=== PATIENT | female | born 1930 | race Caucasian/White ===

== ENCOUNTER 2016-08-03 13:53 | Inpatient (IN) | payer MEDICARE, OTHER ==
[~2016-08-03] VITALS: Ht 172.7 cm; Wt 85.0 kg
[~2016-08-03 13:53] MED LIST: KCL; LAS20; SYN15
[2016-08-03] MEDS ORDERED: SOD CHLORIDE 0.9% 500 ML IV STA (15:37)
[2016-08-03] MEDS ORDERED: morphine 4 MG/ML VIAL IV STA (15:37)
[2016-08-03] MEDS ORDERED: ONDANSETRON 4 MG INJ IV STA (15:37)
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
[2016-08-03 15:58] LABS: ADD SCAN DIFF NO
[2016-08-03 16:00] LABS: BASOPHILS % 0.4 % (0.0-2.0); EOSINOPHILS # 0.1 10^3/ul (0.0-0.5); EOSINOPHILS % 1.4 % (0.0-7.0); HEMATOCRIT 41.5 % (37.0-47.0); HEMOGLOBIN 13.7 g/dl (12.0-16.0); LYMPHOCYTES # 2.7 10^3/ul (0.8-2.9); LYMPHOCYTES % 28.2 % (15.0-51.0); MEAN CORPUSCULAR HEMOGLOBIN 30.1 pg (29.0-33.0); MEAN CORPUSCULAR VOLUME 91.2 fl (82.0-101.0); MEAN PLATELET VOLUME 9.8 fl (7.4-10.4); MONOCYTE # 0.8 10^3/ul (0.3-0.9); MONOCYTES % 8.5 % (0.0-11.0); NEUTROPHIL # 5.7 10^3/ul (1.6-7.5); NEUTROPHILS % 61.1 % (39.0-77.0); PLATELET COUNT 259 10^3/UL (140-415); RED BLOOD COUNT 4.55 10^6/ul (4.20-5.40); RED CELL DISTRIBUTION WIDTH 15.2 % (11.5-14.5); WHITE BLOOD COUNT 9.4 10^3/ul (4.8-10.8)
[2016-08-03 16:10] LABS: INR 2.32; PROTIME 25.7 Sec (12.2-14.2)
[2016-08-03 16:11] LABS: PARTIAL THROMBOPLASTIN TIME 47.4 Sec (25.0-35.0)
[2016-08-03] MEDS ORDERED: DIGO125T19 PO (16:16)
[2016-08-03] MEDS ORDERED: CLON0.2T5 PO (16:17)
[2016-08-03] MEDS ORDERED: SYN15 PO (16:17)
[2016-08-03] MEDS ORDERED: FURO40TA4 PO (16:18)
[2016-08-03] MEDS ORDERED: POTA20TA15 PO (16:18)
[2016-08-03] MEDS ORDERED: TRAM-40 PO (16:19)
[2016-08-03] MEDS ORDERED: GLIP2.5T14 PO (16:20)
[2016-08-03] MEDS ORDERED: METF-382 PO (16:21)
[2016-08-03] MEDS ORDERED: PREG150C PO (16:22)
[2016-08-03] MEDS ORDERED: HYDR-906 PO (16:22)
[2016-08-03] MEDS ORDERED: AMLO5TAB4 PO (16:23)
[2016-08-03] MEDS ORDERED: RIVA20TA PO (16:23)
[2016-08-03] MEDS ORDERED: CYAN500T46 PO (16:24)
[2016-08-03 16:35] LABS: ALBUMIN 4.1 g/dl (3.3-4.9); CHLORIDE 96 mmol/L (97-110)
[2016-08-03 16:36] LABS: POTASSIUM 4.3 mmol/L (3.5-5.1); SODIUM 138 mmol/L (135-144)
[2016-08-03 16:38] LABS: ALANINE AMINOTRANSFERASE 26 IU/L (13-69); ALKALINE PHOSPHATASE 64 IU/L (42-121); ANION GAP 16 (8-16); ASPARTATE AMINO TRANSFERASE 35 IU/L (15-46); BILIRUBIN,INDIRECT 0.5 mg/dl (0-1.1); BILIRUBIN,TOTAL 0.5 mg/dl (0.2-1.3); BLOOD UREA NITROGEN 14 mg/dl (7-20); CARBON DIOXIDE 30 mmol/L (21-31); CREATININE 0.53 mg/dl (0.44-1.00); GLUCOSE 139 mg/dl (70-220); TOTAL PROTEIN 8.2 g/dl (6.1-8.1)
[2016-08-03 16:56] LABS: TROPONIN-I < 0.012 ng/ml (0.00-0.12)
--- NOTE | 2016-08-03 17:17 | RADRPT ---
PROCEDURE: XR Chest. CLINICAL INDICATION: Abdominal pain. TECHNIQUE: Single frontal view of the chest was obtained COMPARISON: No. FINDINGS: The soft tissues are normal. The bony elements are normal. The left ventricle is mildly enlarged. The cardiomediastinal silhouette and hilar structures are normal. The pulmonary vasculature is norm al. There are vascular calcifications aortic arch. No acute infiltrate is identified. The costophre rosalino angles are normal. IMPRESSION: 1. Atherosclerosis of the aortic arch. 2. Mild left ventricular enlargement. 3. No evidence of active cardiopulmonary disease. RPTAT:AAJJ Physician Deni Date Time Electronically viewed and signed by Ian Connors Physician on 08/03/2016 17:17 /
[2016-08-03 18:00] VITALS: TEMP 98.2
[2016-08-03] MEDS ORDERED: ONDANSETRON 4 MG TAB PO PRN (18:00)
[2016-08-03] MEDS ORDERED: MAGNESIUM HYDROXIDE 30ML CUP PO PRN (18:00)
[2016-08-03] MEDS ORDERED: NACL 0.9% 3 ML SYG IV SCH (18:00)
[2016-08-03] MEDS ORDERED: ACETAMINOPHEN 325 MG TAB PO PRN (18:00)
[2016-08-03] MEDS ORDERED: ONDANSETRON 4 MG INJ IV PRN (18:00)
[2016-08-03] MEDS ORDERED: DOCUSATE SODIUM 100 MG CAP PO PRN (18:00)
[2016-08-03 18:25] VITALS: BP 136/72; PULSE 93; RESP 26
[2016-08-03 18:26] LABS: ADD UMIC YES; URINE BILIRUBIN (Dip) NEGATIVE (NEGATIVE); URINE BLOOD (Dip) NEGATIVE (NEGATIVE); URINE COLOR LT. YELLOW (YELLOW); URINE GLUCOSE (Dip) NEGATIVE (NEGATIVE); URINE KETONES (Dip) NEGATIVE (NEGATIVE); URINE LEUKOCYTE ESTERASE (Dip) TRACE (NEGATIVE); URINE NITRITE (Dip) NEGATIVE (NEGATIVE); URINE TOTAL PROTEIN (Dip) NEGATIVE (NEGATIVE); URINE UROBILINOGEN (Dip) 0.2 E.U./dL (0.1-1.0)
[2016-08-03 18:44] LABS: BACTERIA,URINE MODERATE; SQUAMOUS EPITHELIAL CELL,UR MANY; URINE RBCS NONE SEEN /HPF (0)
[2016-08-03] MEDS: metFORMIN 500 MG TAB PO SCH (19:00)
[2016-08-03] MEDS: morphine 4 MG/ML VIAL IV PRN (19:24)
[2016-08-03] MEDS ORDERED: NEOMYC/POLYMYX/BACIT 0.9 GM OINT ONE (19:57)
[2016-08-03] MEDS: 1/2 NS + KCL 20 MEQ 1,000 ML IV SCH (20:06)
[2016-08-03] MEDS: PREGABALIN 75 MG CAP PO SCH (20:29)
[2016-08-03] MEDS: FAMOTIDINE 20 MG TAB PO SCH (20:30)
[2016-08-03] MEDS: traMADol 50 MG TAB PO PRN (21:18)
[2016-08-03 21:21] VITALS: BP 130/71; RESP 20
[2016-08-03] MEDS: morphine 10 MG INJ IM ONE ×2 (22:12→23:14)
[2016-08-03 22:58] VITALS: Ht 172.7 cm; Wt 85.0 kg
[2016-08-04] MEDS: morphine 4 MG/ML VIAL IV PRN ×2 (05:41→11:20)
[2016-08-04 05:44] LABS: ADD SCAN DIFF NO
[2016-08-04 06:00] LABS: BASOPHILS % 0.3 % (0.0-2.0); EOSINOPHILS # 0.2 10^3/ul (0.0-0.5); EOSINOPHILS % 1.7 % (0.0-7.0); HEMOGLOBIN 12.4 g/dl (12.0-16.0); LYMPHOCYTES # 2.6 10^3/ul (0.8-2.9); LYMPHOCYTES % 28.7 % (15.0-51.0); MEAN CORPUSCULAR HEMOGLOBIN 29.9 pg (29.0-33.0); MEAN CORPUSCULAR HGB CONC 31.8 g/dl (32.0-37.0); MONOCYTE # 0.7 10^3/ul (0.3-0.9); MONOCYTES % 8.2 % (0.0-11.0); NEUTROPHIL # 5.5 10^3/ul (1.6-7.5); NEUTROPHILS % 60.7 % (39.0-77.0); PLATELET COUNT 255 10^3/UL (140-415); RED BLOOD COUNT 4.15 10^6/ul (4.20-5.40); RED CELL DISTRIBUTION WIDTH 15.8 % (11.5-14.5)
[2016-08-04 06:08] LABS: ALBUMIN 3.8 g/dl (3.3-4.9); POTASSIUM 4.4 mmol/L (3.5-5.1)
[2016-08-04] MEDS: 1/2 NS + KCL 20 MEQ 1,000 ML IV SCH ×2 (06:09→16:08)
[2016-08-04 06:10] LABS: BILIRUBIN,INDIRECT 0.5 mg/dl (0-1.1); BILIRUBIN,TOTAL 0.5 mg/dl (0.2-1.3); CREATININE 0.6 mg/dl (0.44-1.00)
[2016-08-04 06:11] LABS: ALBUMIN/GLOBULIN RATIO 1.05; CALCIUM 8.3 mg/dl (8.4-10.2); TOTAL PROTEIN 7.4 g/dl (6.1-8.1)
[2016-08-04] MEDS: LEVOTHYROXINE 150 MCG TAB PO SCH (07:14)
[2016-08-04 08:07] VITALS: BP 125/65; RESP 18
[2016-08-04] MEDS: FUROSEMIDE 40 MG TAB PO SCH (08:31)
[2016-08-04] MEDS: glipiZIDE (XL) 2.5 MG TAB PO SCH (08:31)
[2016-08-04] MEDS: CYANOCOBALAMIN 500 MCG TAB PO SCH (08:31)
[2016-08-04] MEDS: FAMOTIDINE 20 MG TAB PO SCH ×2 (08:31→21:02)
[2016-08-04] MEDS: POTASSIUM CHLORIDE (SR) 20 MEQ TAB PO SCH (08:31)
[2016-08-04] MEDS: metFORMIN 500 MG TAB PO SCH ×2 (08:31→18:06)
[2016-08-04] MEDS: AMLODIPINE 5 MG TAB PO SCH (08:32)
[2016-08-04] MEDS: PREGABALIN 75 MG CAP PO SCH ×2 (08:34→21:03)
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
[2016-08-04] MEDS: CARISOPRODOL 350 MG TAB PO SCH ×3 (09:36→21:03)
[2016-08-04] MEDS ORDERED: DEXTROSE 50% 50 ML SYRINGE IV PRN ×2 (12:00)
[2016-08-04] MEDS ORDERED: GLUCOSE GEL 15 GRAM TUBE PO PRN ×2 (12:00)
[2016-08-04] MEDS ORDERED: GLUCOSE GEL 15 GRAM TUBE BUCCAL PRN (12:00)
[2016-08-04] MEDS ORDERED: GLUCAGON 1 MG INJ IM PRN (12:00)
[2016-08-04] MEDS: DIGOXIN 0.125 MG TAB PO SCH (13:48)
[2016-08-04 14:00] VITALS: BP 122/68; PULSE 78; RESP 18
[2016-08-04] MEDS: RIVAROXABAN 20 MG TABLET PO SCH (18:06)
[2016-08-04] MEDS: traMADol 50 MG TAB PO PRN (18:20)
[2016-08-04 20:03] VITALS: BP 114/55; RESP 20
[2016-08-05] MEDS: morphine 4 MG/ML VIAL IV PRN ×3 (00:56→21:53)
[2016-08-05] MEDS: traMADol 50 MG TAB PO PRN ×2 (06:25→17:47)
[2016-08-05] MEDS: LEVOTHYROXINE 150 MCG TAB PO SCH (06:26)
[2016-08-05 06:38] LABS: ADD SCAN DIFF NO
[2016-08-05 06:53] LABS: BASOPHILS % 0.2 % (0.0-2.0); EOSINOPHILS # 0.1 10^3/ul (0.0-0.5); EOSINOPHILS % 0.6 % (0.0-7.0); HEMATOCRIT 37.9 % (37.0-47.0); HEMOGLOBIN 12.3 g/dl (12.0-16.0); LYMPHOCYTES # 2.4 10^3/ul (0.8-2.9); LYMPHOCYTES % 21.9 % (15.0-51.0); MEAN CORPUSCULAR HGB CONC 32.5 g/dl (32.0-37.0); MEAN CORPUSCULAR VOLUME 92.4 fl (82.0-101.0); MEAN PLATELET VOLUME 10.2 fl (7.4-10.4); MONOCYTE # 0.9 10^3/ul (0.3-0.9); MONOCYTES % 8.6 % (0.0-11.0); NEUTROPHIL # 7.4 10^3/ul (1.6-7.5); NEUTROPHILS % 68.3 % (39.0-77.0); PLATELET COUNT 223 10^3/UL (140-415); RED CELL DISTRIBUTION WIDTH 15.6 % (11.5-14.5); WHITE BLOOD COUNT 10.8 10^3/ul (4.8-10.8)
[2016-08-05 07:00] VITALS: BP 137/80; RESP 18
[2016-08-05] MEDS: 1/2 NS + KCL 20 MEQ 1,000 ML IV SCH ×2 (07:22→19:52)
[2016-08-05 07:26] LABS: ALBUMIN 3.5 g/dl (3.3-4.9)
[2016-08-05 07:27] LABS: POTASSIUM 3.7 mmol/L (3.5-5.1)
[2016-08-05 07:29] LABS: BILIRUBIN,INDIRECT 0.6 mg/dl (0-1.1); BILIRUBIN,TOTAL 0.6 mg/dl (0.2-1.3); CREATININE 0.53 mg/dl (0.44-1.00)
[2016-08-05 07:30] LABS: CALCIUM 8.2 mg/dl (8.4-10.2)
[2016-08-05] MEDS: CYANOCOBALAMIN 500 MCG TAB PO SCH (08:49)
[2016-08-05] MEDS: FUROSEMIDE 40 MG TAB PO SCH (08:49)
[2016-08-05] MEDS: POTASSIUM CHLORIDE (SR) 20 MEQ TAB PO SCH (08:49)
[2016-08-05] MEDS: FAMOTIDINE 20 MG TAB PO SCH ×2 (08:49→21:15)
[2016-08-05] MEDS: glipiZIDE (XL) 2.5 MG TAB PO SCH (08:50)
[2016-08-05] MEDS: metFORMIN 500 MG TAB PO SCH ×2 (08:50→17:59)
[2016-08-05] MEDS: AMLODIPINE 5 MG TAB PO SCH (08:51)
[2016-08-05] MEDS: PREGABALIN 75 MG CAP PO SCH ×2 (08:52→21:14)
[2016-08-05] MEDS: CARISOPRODOL 350 MG TAB PO SCH ×3 (08:52→21:14)
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
[2016-08-05] MEDS: LEVOFLOXACIN 500 MG TAB PO SCH (11:39)
[2016-08-05 12:00] VITALS: BP 122/70; PULSE 72; RESP 18
[2016-08-05] MEDS: DIGOXIN 0.125 MG TAB PO SCH (13:04)
[2016-08-05] MEDS: RIVAROXABAN 20 MG TABLET PO SCH (17:59)
[2016-08-05 19:00] VITALS: BP 132/76; RESP 18
[2016-08-06] MEDS: morphine 4 MG/ML VIAL IV PRN ×5 (03:21→20:13)
[2016-08-06] MEDS: BISACODYL (EC) 5 MG TAB PO PRN ×2 (03:26→20:42)
[2016-08-06] MEDS: LEVOFLOXACIN 500 MG TAB PO SCH (06:25)
[2016-08-06 07:40] VITALS: BP 188/88; RESP 16
[2016-08-06] MEDS: 1/2 NS + KCL 20 MEQ 1,000 ML IV SCH ×2 (08:22→20:52)
[2016-08-06] MEDS: LEVOTHYROXINE 150 MCG TAB PO SCH (08:24)
[2016-08-06] MEDS: metFORMIN 500 MG TAB PO SCH ×2 (08:25→20:06)
[2016-08-06] MEDS: glipiZIDE (XL) 2.5 MG TAB PO SCH ×2 (09:06→09:35)
[2016-08-06] MEDS: POTASSIUM CHLORIDE (SR) 20 MEQ TAB PO SCH (09:06)
[2016-08-06] MEDS: CYANOCOBALAMIN 500 MCG TAB PO SCH (09:06)
[2016-08-06] MEDS: FAMOTIDINE 20 MG TAB PO SCH ×2 (09:06→20:12)
[2016-08-06] MEDS: FUROSEMIDE 40 MG TAB PO SCH ×2 (09:07→09:37)
[2016-08-06] MEDS: AMLODIPINE 5 MG TAB PO SCH (09:07)
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
[2016-08-06] MEDS: CARISOPRODOL 350 MG TAB PO SCH ×3 (09:35→20:13)
[2016-08-06] MEDS: PREGABALIN 75 MG CAP PO SCH ×2 (09:36→20:13)
[2016-08-06] MEDS: DIGOXIN 0.125 MG TAB PO SCH (14:45)
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
--- NOTE | 2016-08-06 16:44 | RADRPT ---
PROCEDURE: XR right Hand. CLINICAL INDICATION: Right hand pain TECHNIQUE: Three views of the right hand were obtained. COMPARISON: No prior studies are available for comparison. FINDINGS: Overlying casting material obscures bony detail. There is a minimally-displaced fracture at the bas e of the fifth proximal phalanx. Difficult to identify any additional fractures though this assessm ent is limited. IMPRESSION: 1. Limited evaluation due to overlying casting material. Consider follow-up after removal of casti ng material. 2. Minimally-displaced fracture near the base of the fifth proximal phalanx. No additional fracture s can be confirmed. RPTAT: UU .Royal Cordoba MD, MD Date Time Electronically viewed and signed by .Royal Cordoba MD, on 08/06/2016 16:44 .K/
[2016-08-06] MEDS: RIVAROXABAN 20 MG TABLET PO SCH (20:06)
[2016-08-06 20:49] VITALS: BP 128/72; RESP 16
[2016-08-07] MEDS: morphine 4 MG/ML VIAL IV PRN ×4 (02:52→18:35)
[2016-08-07] MEDS: LEVOFLOXACIN 500 MG TAB PO SCH (06:42)
[2016-08-07] MEDS: LEVOTHYROXINE 150 MCG TAB PO SCH (06:42)
[2016-08-07 09:04] VITALS: BP 137/83; RESP 20
[2016-08-07] MEDS: 1/2 NS + KCL 20 MEQ 1,000 ML IV SCH ×2 (09:22→21:52)
[2016-08-07] MEDS: metFORMIN 500 MG TAB PO SCH ×2 (09:57→18:27)
[2016-08-07] MEDS: POTASSIUM CHLORIDE (SR) 20 MEQ TAB PO SCH (09:57)
[2016-08-07] MEDS: glipiZIDE (XL) 2.5 MG TAB PO SCH (09:58)
[2016-08-07] MEDS: CYANOCOBALAMIN 500 MCG TAB PO SCH (09:58)
[2016-08-07] MEDS: PREGABALIN 75 MG CAP PO SCH ×2 (09:58→20:31)
[2016-08-07] MEDS: FAMOTIDINE 20 MG TAB PO SCH ×2 (09:59→20:31)
[2016-08-07] MEDS: CARISOPRODOL 350 MG TAB PO SCH ×3 (09:59→20:31)
[2016-08-07] MEDS: FUROSEMIDE 40 MG TAB PO SCH (10:00)
[2016-08-07] MEDS: AMLODIPINE 5 MG TAB PO SCH (10:00)
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
[2016-08-07] MEDS: DIGOXIN 0.125 MG TAB PO SCH (13:58)
[2016-08-07] MEDS: RIVAROXABAN 20 MG TABLET PO SCH (18:27)
[2016-08-07 19:10] VITALS: BP 116/64; RESP 20
[2016-08-08] MEDS: morphine 4 MG/ML VIAL IV PRN ×2 (03:26→12:13)
[2016-08-08] MEDS: LEVOTHYROXINE 150 MCG TAB PO SCH (05:44)
[2016-08-08] MEDS: LEVOFLOXACIN 500 MG TAB PO SCH (05:44)
[2016-08-08 07:47] VITALS: BP 130/60; RESP 18
[2016-08-08] MEDS: metFORMIN 500 MG TAB PO SCH ×2 (08:31→17:30)
[2016-08-08] MEDS: glipiZIDE (XL) 2.5 MG TAB PO SCH (08:32)
[2016-08-08] MEDS: POTASSIUM CHLORIDE (SR) 20 MEQ TAB PO SCH (08:32)
[2016-08-08] MEDS: FAMOTIDINE 20 MG TAB PO SCH (08:33)
[2016-08-08] MEDS: PREGABALIN 75 MG CAP PO SCH (08:33)
[2016-08-08] MEDS: AMLODIPINE 5 MG TAB PO SCH (08:33)
[2016-08-08] MEDS: FUROSEMIDE 40 MG TAB PO SCH (08:33)
[2016-08-08] MEDS: CYANOCOBALAMIN 500 MCG TAB PO SCH (08:34)
[2016-08-08] MEDS: CARISOPRODOL 350 MG TAB PO SCH ×2 (08:34→12:37)
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
[2016-08-08] MEDS: 1/2 NS + KCL 20 MEQ 1,000 ML IV SCH (10:22)
[2016-08-08] MEDS: DIGOXIN 0.125 MG TAB PO SCH (12:37)
[2016-08-08] MEDS ORDERED: HYDROCODONE/APAP (5/325) TAB PO PRN ×2 (14:30)
[2016-08-08] MEDS: RIVAROXABAN 20 MG TABLET PO SCH (17:30)
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
== END 2016-08-08 20:00 | DRG 605 ==
LOC: E/R 13:53 → MS1 16:36
PROVIDERS: ADMIT Internal Medicine; ATTEND Internal Medicine
DX: S30.1XXA Contusion of abdominal wall, initial encounter (principal); S62.309A Unspecified fracture of unspecified metacarpal bone, initial encounter for closed fracture; E11.69 Type 2 diabetes mellitus with other specified complication; I48.0 Paroxysmal atrial fibrillation; E03.9 Hypothyroidism, unspecified; E78.5 Hyperlipidemia, unspecified; V89.2XXA Person injured in unspecified motor-vehicle accident, traffic, initial encounter; M51.86 Other intervertebral disc disorders, lumbar region
CPT/HCPCS: 36415; 71010; 80053; 81001; 81003; 82962; 83036; 83690; 84439; 84443; 84484; 85025; 85610; 85730; 87086; 93005; 96374; 96375; 97162; J2270; J2405; J3480; J7040

== ENCOUNTER 2016-08-08 17:20 | Inpatient (IN) | payer MEDICARE, OTHER ==
[~2016-08-08] VITALS: Ht 172.7 cm; Wt 85.0 kg
[~2016-08-08 17:20] MED LIST changes: +AMLO5TAB4 PO; +CLON0.2T5 PO; +CYAN500T46 PO; +DIGO125T19 PO; +FURO40TA4 PO; +GLIP2.5T14 PO; +HYDR-906 PO; -KCL; -LAS20; +METF500T4 PO; +POTA20TA15 PO; +PREG150C PO; +RIVA20TA PO; -SYN15; +SYN15 PO; +TRAM-40 PO
[2016-08-08 20:53] VITALS: BP 138/69; RESP 18
[2016-08-08 21:00] VITALS: Ht 172.7 cm; Wt 85.0 kg
[2016-08-08] MEDS ORDERED: MAGNESIUM HYDROXIDE 30ML CUP PO PRN (21:00)
[2016-08-08] MEDS ORDERED: DEXTROSE 50% 50 ML SYRINGE IV PRN ×2 (21:00)
[2016-08-08] MEDS ORDERED: GLUCOSE GEL 15 GRAM TUBE BUCCAL PRN (21:00)
[2016-08-08] MEDS ORDERED: ONDANSETRON 4 MG TAB PO PRN (21:00)
[2016-08-08] MEDS ORDERED: HYDROCODONE/APAP (5/325) TAB PO PRN (21:00)
[2016-08-08] MEDS ORDERED: GLUCAGON 1 MG INJ IM PRN (21:00)
[2016-08-08] MEDS ORDERED: GLUCOSE GEL 15 GRAM TUBE PO PRN ×2 (21:00)
[2016-08-08] MEDS ORDERED: BISACODYL (EC) 5 MG TAB PO PRN (21:30)
[2016-08-08] MEDS ORDERED: ACETAMINOPHEN 325 MG TAB PO PRN (21:30)
[2016-08-08] MEDS: PREGABALIN 75 MG CAP PO SCH (21:47)
[2016-08-08] MEDS: FAMOTIDINE 20 MG TAB PO SCH (21:47)
[2016-08-08] MEDS: CARISOPRODOL 350 MG TAB PO SCH (21:47)
[2016-08-08] MEDS: HYDROCODONE/APAP (5/325) TAB PO PRN (21:48)
[2016-08-08 22:38] LABS: ADD UMIC YES; URINE BILIRUBIN (Dip) 1+ (NEGATIVE); URINE BLOOD (Dip) NEGATIVE (NEGATIVE); URINE COLOR YELLOW (YELLOW); URINE GLUCOSE (Dip) NEGATIVE (NEGATIVE); URINE KETONES (Dip) TRACE (NEGATIVE); URINE LEUKOCYTE ESTERASE (Dip) TRACE (NEGATIVE); URINE NITRITE (Dip) NEGATIVE (NEGATIVE); URINE TOTAL PROTEIN (Dip) NEGATIVE (NEGATIVE); URINE UROBILINOGEN (Dip) 2.0 E.U./dL (0.1-1.0)
[2016-08-08 22:53] LABS: SQUAMOUS EPITHELIAL CELL,UR MODERATE; URINE RBCS 0-2 /HPF (0)
[2016-08-08 22:54] LABS: ICTOTEST NEGATIVE (NEGATIVE)
[2016-08-09] MEDS ORDERED: LACTULOSE 30ML CUP PO PRN (06:00)
[2016-08-09] MEDS ORDERED: BISACODYL 10 MG SUPP PR PRN (06:00)
[2016-08-09] MEDS: LEVOFLOXACIN 500 MG TAB PO SCH (06:08)
[2016-08-09] MEDS: LEVOTHYROXINE 150 MCG TAB PO SCH (06:08)
[2016-08-09] MEDS: ACCU-CHEK XX SCH ×3 (07:05→17:36)
[2016-08-09] MEDS: HYDROCODONE/APAP (5/325) TAB PO PRN ×2 (07:18→21:03)
[2016-08-09 07:39] LABS: ADD SCAN DIFF NO
[2016-08-09 07:44] VITALS: BP 175/94; RESP 18
[2016-08-09 07:45] LABS: BASOPHILS % 0.4 % (0.0-2.0); EOSINOPHILS # 0.1 10^3/ul (0.0-0.5); EOSINOPHILS % 1.2 % (0.0-7.0); HEMATOCRIT 41.4 % (37.0-47.0); HEMOGLOBIN 13.2 g/dl (12.0-16.0); LYMPHOCYTES # 1.9 10^3/ul (0.8-2.9); LYMPHOCYTES % 25.6 % (15.0-51.0); MEAN CORPUSCULAR HEMOGLOBIN 29.7 pg (29.0-33.0); MEAN CORPUSCULAR HGB CONC 31.9 g/dl (32.0-37.0); MEAN CORPUSCULAR VOLUME 93.2 fl (82.0-101.0); MEAN PLATELET VOLUME 9.9 fl (7.4-10.4); MONOCYTE # 0.6 10^3/ul (0.3-0.9); MONOCYTES % 7.9 % (0.0-11.0); NEUTROPHIL # 4.8 10^3/ul (1.6-7.5); NEUTROPHILS % 64.2 % (39.0-77.0); PLATELET COUNT 250 10^3/UL (140-415); RED BLOOD COUNT 4.44 10^6/ul (4.20-5.40); RED CELL DISTRIBUTION WIDTH 15.6 % (11.5-14.5); WHITE BLOOD COUNT 7.5 10^3/ul (4.8-10.8)
[2016-08-09 07:59] LABS: ALBUMIN 3.9 g/dl (3.3-4.9)
[2016-08-09 08:00] LABS: POTASSIUM 4.1 mmol/L (3.5-5.1)
[2016-08-09 08:02] LABS: BILIRUBIN,INDIRECT 0.3 mg/dl (0-1.1); BILIRUBIN,TOTAL 0.3 mg/dl (0.2-1.3); CREATININE 0.48 mg/dl (0.44-1.00)
[2016-08-09 08:03] LABS: ALBUMIN/GLOBULIN RATIO 0.97; CALCIUM 8.9 mg/dl (8.4-10.2); TOTAL PROTEIN 7.9 g/dl (6.1-8.1)
[2016-08-09] MEDS: glipiZIDE (XL) 2.5 MG TAB PO SCH (08:36)
[2016-08-09] MEDS: CARISOPRODOL 350 MG TAB PO SCH ×3 (08:37→21:02)
[2016-08-09] MEDS: PREGABALIN 75 MG CAP PO SCH ×2 (08:37→21:02)
[2016-08-09] MEDS: POTASSIUM CHLORIDE (SR) 20 MEQ TAB PO SCH (08:37)
[2016-08-09] MEDS: metFORMIN 500 MG TAB PO SCH ×2 (08:38→17:36)
[2016-08-09] MEDS: FUROSEMIDE 40 MG TAB PO SCH (08:38)
[2016-08-09] MEDS: CYANOCOBALAMIN 500 MCG TAB PO SCH (08:38)
[2016-08-09] MEDS: FAMOTIDINE 20 MG TAB PO SCH ×2 (08:38→21:02)
[2016-08-09] MEDS ORDERED: AMLODIPINE 5 MG TAB PO SCH (09:00)
[2016-08-09] MEDS: DIGOXIN 0.125 MG TAB PO SCH (12:27)
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
[2016-08-09] MEDS: RIVAROXABAN 20 MG TABLET PO SCH (17:36)
[2016-08-09 20:00] VITALS: BP 160/72; PULSE 78; RESP 18
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
[2016-08-09] MEDS ORDERED: AMLODIPINE 5 MG TAB PO ONE (20:30)
[2016-08-09] MEDS: SENNA TAB PO SCH (21:00)
[2016-08-10] MEDS: HYDROCODONE/APAP (5/325) TAB PO PRN ×4 (03:04→21:03)
[2016-08-10] MEDS: LEVOTHYROXINE 150 MCG TAB PO SCH (06:53)
[2016-08-10] MEDS: LEVOFLOXACIN 500 MG TAB PO SCH (06:53)
[2016-08-10] MEDS: ACCU-CHEK XX SCH ×3 (07:05→17:05)
[2016-08-10 07:30] VITALS: BP 185/95; RESP 18
[2016-08-10] MEDS: metFORMIN 500 MG TAB PO SCH ×2 (08:08→18:17)
[2016-08-10] MEDS: POTASSIUM CHLORIDE (SR) 20 MEQ TAB PO SCH (08:28)
[2016-08-10] MEDS: PREGABALIN 75 MG CAP PO SCH ×2 (08:28→20:40)
[2016-08-10] MEDS: FUROSEMIDE 40 MG TAB PO SCH (08:28)
[2016-08-10] MEDS: FAMOTIDINE 20 MG TAB PO SCH ×2 (08:28→20:40)
[2016-08-10] MEDS: glipiZIDE (XL) 2.5 MG TAB PO SCH (08:28)
[2016-08-10] MEDS: CARISOPRODOL 350 MG TAB PO SCH ×3 (08:29→20:40)
[2016-08-10] MEDS: CYANOCOBALAMIN 500 MCG TAB PO SCH (08:29)
[2016-08-10] MEDS: AMLODIPINE 10 MG TAB PO SCH (08:29)
[2016-08-10 10:00] VITALS: BP 135/65; PULSE 78
[2016-08-10] MEDS: DIGOXIN 0.125 MG TAB PO SCH (13:00)
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
[2016-08-10] MEDS: RIVAROXABAN 20 MG TABLET PO SCH (18:17)
[2016-08-10 20:00] VITALS: BP 195/91; RESP 20
[2016-08-10] MEDS: DOXAZOSIN 1 MG TAB PO SCH (20:40)
[2016-08-10] MEDS: SENNA TAB PO SCH (20:40)
[2016-08-10 22:15] VITALS: BP 156/80; PULSE 72
[2016-08-11] MEDS: HYDROCODONE/APAP (5/325) TAB PO PRN ×5 (03:01→23:45)
[2016-08-11] MEDS: LEVOTHYROXINE 150 MCG TAB PO SCH (06:29)
[2016-08-11] MEDS: LEVOFLOXACIN 500 MG TAB PO SCH (06:29)
[2016-08-11 07:42] VITALS: BP 152/87; RESP 18
[2016-08-11] MEDS: ACCU-CHEK XX SCH ×3 (07:53→18:04)
[2016-08-11] MEDS: CYANOCOBALAMIN 500 MCG TAB PO SCH (08:10)
[2016-08-11] MEDS: CARISOPRODOL 350 MG TAB PO SCH ×3 (08:10→20:22)
[2016-08-11] MEDS: AMLODIPINE 10 MG TAB PO SCH (08:10)
[2016-08-11] MEDS: FAMOTIDINE 20 MG TAB PO SCH ×2 (08:10→20:22)
[2016-08-11] MEDS: PREGABALIN 75 MG CAP PO SCH ×2 (08:10→20:23)
[2016-08-11] MEDS: metFORMIN 500 MG TAB PO SCH ×2 (08:10→18:00)
[2016-08-11] MEDS: POTASSIUM CHLORIDE (SR) 20 MEQ TAB PO SCH (08:11)
[2016-08-11] MEDS: FUROSEMIDE 40 MG TAB PO SCH (08:11)
[2016-08-11] MEDS: glipiZIDE (XL) 2.5 MG TAB PO SCH (08:11)
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
[2016-08-11] MEDS: DIGOXIN 0.125 MG TAB PO SCH (13:18)
[2016-08-11] MEDS: RIVAROXABAN 20 MG TABLET PO SCH (18:00)
[2016-08-11 20:00] VITALS: BP 140/85; RESP 18
[2016-08-11] MEDS: SENNA TAB PO SCH (20:22)
[2016-08-11] MEDS: DOXAZOSIN 1 MG TAB PO SCH (20:23)
[2016-08-12] MEDS: HYDROCODONE/APAP (5/325) TAB PO PRN ×4 (04:13→21:39)
[2016-08-12] MEDS: LEVOTHYROXINE 150 MCG TAB PO SCH (06:53)
[2016-08-12] MEDS: LEVOFLOXACIN 500 MG TAB PO SCH (06:53)
[2016-08-12] MEDS: ACCU-CHEK XX SCH ×3 (07:05→17:08)
[2016-08-12] MEDS: metFORMIN 500 MG TAB PO SCH ×2 (08:15→17:25)
[2016-08-12] MEDS: PREGABALIN 75 MG CAP PO SCH ×2 (09:35→20:41)
[2016-08-12] MEDS: FAMOTIDINE 20 MG TAB PO SCH ×2 (09:35→20:41)
[2016-08-12] MEDS: glipiZIDE (XL) 2.5 MG TAB PO SCH (09:35)
[2016-08-12] MEDS: FUROSEMIDE 40 MG TAB PO SCH (09:35)
[2016-08-12] MEDS: POTASSIUM CHLORIDE (SR) 20 MEQ TAB PO SCH (09:35)
[2016-08-12] MEDS: CARISOPRODOL 350 MG TAB PO SCH ×3 (09:35→20:41)
[2016-08-12] MEDS: CYANOCOBALAMIN 500 MCG TAB PO SCH (09:35)
[2016-08-12] MEDS: AMLODIPINE 10 MG TAB PO SCH (09:36)
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
[2016-08-12] MEDS: DIGOXIN 0.125 MG TAB PO SCH (12:34)
[2016-08-12] MEDS: RIVAROXABAN 20 MG TABLET PO SCH (17:25)
[2016-08-12 20:33] VITALS: BP 135/60; PULSE 74; RESP 17
[2016-08-12] MEDS: DOXAZOSIN 1 MG TAB PO SCH (20:41)
[2016-08-12] MEDS: SENNA TAB PO SCH (20:42)
[2016-08-13] MEDS: HYDROCODONE/APAP (5/325) TAB PO PRN ×3 (03:32→17:43)
[2016-08-13] MEDS: LEVOTHYROXINE 150 MCG TAB PO SCH (06:57)
[2016-08-13] MEDS: ACCU-CHEK XX SCH ×3 (07:05→17:19)
[2016-08-13 07:30] VITALS: BP 169/79; RESP 18
[2016-08-13] MEDS: glipiZIDE (XL) 2.5 MG TAB PO SCH (08:26)
[2016-08-13] MEDS: metFORMIN 500 MG TAB PO SCH ×2 (08:26→17:42)
[2016-08-13] MEDS: CARISOPRODOL 350 MG TAB PO SCH ×3 (08:26→20:22)
[2016-08-13] MEDS: FAMOTIDINE 20 MG TAB PO SCH ×2 (08:27→20:22)
[2016-08-13] MEDS: PREGABALIN 75 MG CAP PO SCH ×2 (08:27→20:22)
[2016-08-13] MEDS: AMLODIPINE 10 MG TAB PO SCH (08:27)
[2016-08-13] MEDS: CYANOCOBALAMIN 500 MCG TAB PO SCH (08:27)
[2016-08-13] MEDS: DOCUSATE SODIUM 100 MG CAP PO PRN (08:28)
[2016-08-13] MEDS: POTASSIUM CHLORIDE (SR) 20 MEQ TAB PO SCH (08:28)
[2016-08-13] MEDS: FUROSEMIDE 40 MG TAB PO SCH (08:29)
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
[2016-08-13] MEDS: DIGOXIN 0.125 MG TAB PO SCH (13:19)
[2016-08-13] MEDS: RIVAROXABAN 20 MG TABLET PO SCH (17:43)
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
[2016-08-13] MEDS: SENNA TAB PO SCH (20:23)
[2016-08-13] MEDS: DOXAZOSIN 1 MG TAB PO SCH (20:24)
[2016-08-13 20:33] VITALS: BP 143/65; RESP 16
[2016-08-14] MEDS: HYDROCODONE/APAP (5/325) TAB PO PRN ×4 (02:12→17:18)
[2016-08-14] MEDS: LEVOTHYROXINE 150 MCG TAB PO SCH (06:26)
[2016-08-14 07:30] VITALS: BP 177/107; RESP 18
[2016-08-14] MEDS: ACCU-CHEK XX SCH ×3 (07:44→17:21)
[2016-08-14] MEDS: PREGABALIN 75 MG CAP PO SCH ×2 (08:15→20:40)
[2016-08-14] MEDS: glipiZIDE (XL) 2.5 MG TAB PO SCH (08:15)
[2016-08-14] MEDS: CARISOPRODOL 350 MG TAB PO SCH ×3 (08:15→20:40)
[2016-08-14] MEDS: metFORMIN 500 MG TAB PO SCH ×2 (08:15→17:17)
[2016-08-14] MEDS: POTASSIUM CHLORIDE (SR) 20 MEQ TAB PO SCH (08:15)
[2016-08-14] MEDS: FUROSEMIDE 40 MG TAB PO SCH (08:17)
[2016-08-14] MEDS: DOCUSATE SODIUM 100 MG CAP PO PRN (08:17)
[2016-08-14] MEDS: CYANOCOBALAMIN 500 MCG TAB PO SCH (08:17)
[2016-08-14] MEDS: AMLODIPINE 10 MG TAB PO SCH (08:17)
[2016-08-14] MEDS: FAMOTIDINE 20 MG TAB PO SCH ×2 (08:17→20:39)
[2016-08-14 10:00] VITALS: BP 126/78; PULSE 92
--- NOTE | 2016-08-14 12:07 | CONS ---
Date/Time of Note Date/Time of Note DATE: 08/14/16 TIME: 12:06 Consult Date/Type/Reason Admit Date/Time Aug 08, 2016 at 18:48 Initial Consult Date Objective Vital Signs Date Time Temp Pulse Resp B/P Pulse Ox O2 Delivery O2 Flow Rate FiO2 08/14/16 10:00 92 126/78 08/14/16 07:30 97.7 18 92 08/12/16 20:33 Room Air Intake and Output 08/13/16 08/13/16 08/14/16 15:00 23:00 07:00 Intake Total 600 ml 1640 ml 440 ml Balance 600 ml 1640 ml 440 ml INTERDISCIPLINARY TEAM CONFERENCE BOWEL- Cont BLADDER-Cont SKIN- intact OT- DRESSING-min/mod BATHING-min/mod TOILETING-min/mod PT- BED MOBILITY-min TRANSFERS-min AMBULATION-min 120 feet A/P- Interdisciplinary team conference held today. Please see interdisciplinary sheet. Working toward d.cJessica on 08/22 with post discharge follow up of physical therapy, occupational therapy. Results/Medications Results 24 hrs Laboratory Tests Test 08/13/16 17:00 08/14/16 05:55 08/14/16 07:36 08/14/16 11:57 Bedside Glucose 102 132 124 Thyroid Stimulating Hormone (TSH) 2.670 Free Thyroxine 1.08 Medications Current Medications Ondansetron HCl (Zofran Tab) 4 mg Q6H PRN PO NAUSEA AND/OR VOMITING; Start 08/08 at 21:00 Potassium Chloride (Klor-Con 20) 20 meq DAILY PO Last administered on 08:15; Admin Dose 20 MEQ; Start 08/09/16 at 09:00 Pregabalin (Lyrica) 150 mg BID PO Last administered on 08/14/16 08:15; Admin Dose 150 MG; Start 08/08/16 at 21:00 Levothyroxine Sodium (Synthroid) 150 mcg DAILY@06 PO Last administered on 06:26; Admin Dose 150 MCG; Start 08/09/16 at 06:00 Magnesium Hydroxide (Milk Of Mag) 30 ml DAILY PRN PO CONSTIPATION; Start at 21:00 Miscellaneous Information 1 ea NOTE XX ; Start 08/08/16 at 21:00 Glucose (Glutose) 15 gm Q15M PRN PO DECREASED GLUCOSE; Start 08/08/16 at 21:00 Glucose (Glutose) 22.5 gm Q15M PRN PO DECREASED GLUCOSE; Start 08/08/16 at 21:00 Dextrose (D50w Syringe) 25 ml Q15M PRN IV DECREASED GLUCOSE; Start 08/08/16 at 21:00 Dextrose (D50w Syringe) 50 ml Q15M PRN IV DECREASED GLUCOSE; Start 08/08/16 at 21:00 Glucagon (Glucagen) 1 mg Q15M PRN IM DECREASED GLUCOSE; Start 08/08/16 at 21:00 Glucose (Glutose) 15 gm Q15M PRN BUCCAL DECREASED GLUCOSE; Start 08/08/16 at 21: 00 Acetaminophen/ Hydrocodone Bitart ([place] (5/325)) 1 tab Q4H PRN PO PAIN; Start 08/08/16 at 21:00 Acetaminophen/ Hydrocodone Bitart ([place] (5/325)) 2 tab Q4H PRN PO PAIN Last administered on 08/14/16 11:33; Admin Dose 2 TAB; Start 08/08/16 at 21:00 Digoxin (Digoxin) 0.125 mg DAILY@13 PO Last administered on 08/13/16 13:19; Admin Dose 0.125 MG; Start 08/09/16 at 13:00 Docusate Sodium (Colace) 100 mg Q12H PRN PO CONSTIPATION Last administered on 08:17; Admin Dose 100 MG; Start 08/08/16 at 21:30 Famotidine (Pepcid) 20 mg Q12 PO Last administered on 08/14/16 08:17; Admin Dose 20 MG; Start 08/08/16 at 21:08 Furosemide (Lasix) 40 mg DAILY PO Last administered on 08/14/16 08:17; Admin Dose 40 MG; Start 08/09/16 at 09:00 Glipizide (Glucotrol Xl) 2.5 mg DAILY PO Last administered on 08/14/16 08:15; Admin Dose 2.5 MG; Start 08/09/16 at 09:00 Acetaminophen (Tylenol Tab) 650 mg Q6H PRN PO PAIN AND OR ELEVATED TEMP; Start 08/08/16 at 21:30 Bisacodyl (Dulcolax) 5 mg DAILY PRN PO CONSTIPATION; Start 08/08/16 at 21:30 Carisoprodol (Soma) 350 mg TID PO Last administered on 08/14/16 08:15; Admin Dose 350 MG; Start 08/08/16 at 21:10 Clonidine (Catapres) 0.4 mg QAM PO Last administered on 08/14/16 08:17; Admin Dose 0.4 MG; Start 08/09/16 at 09:00 Cyanocobalamin (Vitamin B12) 500 mcg DAILY PO Last administered on 08/14/16 08 :17; Admin Dose 500 MCG; Start 08/09/16 at 09:00 Senna (Senokot) 1 tab HS PO Last administered on 08/13/16 20:23; Admin Dose 1 TAB; Start 08/09/16 at 21:00 Bisacodyl (Dulcolax Supp) 10 mg DAILY PRN [place] CONSTIPATION; Start 08/09/16 at 06: 00 Lactulose (Enulose) 20 gm DAILY PRN PO CONSTIPATION; Start 08/09/16 at 06:00 Amlodipine Besylate (Norvasc) 10 mg DAILY PO Last administered on 08/14/16 08: 17; Admin Dose 10 MG; Start 08/10/16 at 09:00 Doxazosin Mesylate (Cardura) 1 mg HS PO Last administered on 08/13/16 20:24; Admin Dose 1 MG; Start 08/10/16 at 21:00 MONA ESPINOZA MD Aug 14, 2016 12:07 MONA ESPINOZA MD Aug 14, 2016 12:07
[2016-08-14] MEDS: DIGOXIN 0.125 MG TAB PO SCH (12:27)
[2016-08-14] MEDS: RIVAROXABAN 20 MG TABLET PO SCH (17:17)
[2016-08-14] MEDS: DOXAZOSIN 1 MG TAB PO SCH (20:40)
[2016-08-14 20:58] VITALS: BP 136/63; RESP 18
[2016-08-14] MEDS: SENNA TAB PO SCH (21:00)
[2016-08-15] MEDS: HYDROCODONE/APAP (5/325) TAB PO PRN ×4 (00:21→20:21)
[2016-08-15] MEDS: LEVOTHYROXINE 150 MCG TAB PO SCH (06:24)
[2016-08-15 07:42] VITALS: BP 108/67; RESP 18
[2016-08-15] MEDS: ACCU-CHEK XX SCH ×3 (07:51→17:26)
[2016-08-15] MEDS: CARISOPRODOL 350 MG TAB PO SCH ×3 (08:08→20:19)
[2016-08-15] MEDS: POTASSIUM CHLORIDE (SR) 20 MEQ TAB PO SCH (08:08)
[2016-08-15] MEDS: glipiZIDE (XL) 2.5 MG TAB PO SCH (08:09)
[2016-08-15] MEDS: PREGABALIN 75 MG CAP PO SCH ×2 (08:09→20:19)
[2016-08-15] MEDS: CYANOCOBALAMIN 500 MCG TAB PO SCH (08:10)
[2016-08-15] MEDS: FUROSEMIDE 40 MG TAB PO SCH (08:10)
[2016-08-15] MEDS: metFORMIN 500 MG TAB PO SCH ×2 (08:10→17:28)
[2016-08-15] MEDS: FAMOTIDINE 20 MG TAB PO SCH ×2 (08:10→20:18)
[2016-08-15] MEDS: DOCUSATE SODIUM 100 MG CAP PO PRN (08:10)
[2016-08-15] MEDS: AMLODIPINE 10 MG TAB PO SCH (10:35)
--- NOTE | 2016-08-15 12:48 | CONS ---
Date/Time of Note Date/Time of Note DATE: 08/15/16 TIME: 12:48 Consult Date/Type/Reason Admit Date/Time Aug 08, 2016 at 18:48 Objective Vital Signs Date Time Temp Pulse Resp B/P Pulse Ox O2 Delivery O2 Flow Rate FiO2 08/15/16 07:42 97.9 67 18 108/67 98 08/12/16 20:33 Room Air Intake and Output 08/14/16 08/14/16 08/15/16 14:59 22:59 06:59 Intake Total 820 ml 700 ml Balance 820 ml 700 ml Results/Medications Results 24 hrs Laboratory Tests Test 08/14/16 17:16 08/15/16 07:36 08/15/16 12:02 Bedside Glucose 141 144 140 Medications Current Medications Ondansetron HCl (Zofran Tab) 4 mg Q6H PRN PO NAUSEA AND/OR VOMITING; Start 08/08 at 21:00 Potassium Chloride (Klor-Con 20) 20 meq DAILY PO Last administered on 08:08; Admin Dose 20 MEQ; Start 08/09/16 at 09:00 Pregabalin (Lyrica) 150 mg BID PO Last administered on 08/15/16 08:09; Admin Dose 150 MG; Start 08/08/16 at 21:00 Levothyroxine Sodium (Synthroid) 150 mcg DAILY@06 PO Last administered on 06:24; Admin Dose 150 MCG; Start 08/09/16 at 06:00 Magnesium Hydroxide (Milk Of Mag) 30 ml DAILY PRN PO CONSTIPATION; Start at 21:00 Miscellaneous Information 1 ea NOTE XX ; Start 08/08/16 at 21:00 Glucose (Glutose) 15 gm Q15M PRN PO DECREASED GLUCOSE; Start 08/08/16 at 21:00 Glucose (Glutose) 22.5 gm Q15M PRN PO DECREASED GLUCOSE; Start 08/08/16 at 21:00 Dextrose (D50w Syringe) 25 ml Q15M PRN IV DECREASED GLUCOSE; Start 08/08/16 at 21:00 Dextrose (D50w Syringe) 50 ml Q15M PRN IV DECREASED GLUCOSE; Start 08/08/16 at 21:00 Glucagon (Glucagen) 1 mg Q15M PRN IM DECREASED GLUCOSE; Start 08/08/16 at 21:00 Glucose (Glutose) 15 gm Q15M PRN BUCCAL DECREASED GLUCOSE; Start 08/08/16 at 21: 00 Acetaminophen/ Hydrocodone Bitart ([place] (5/325)) 1 tab Q4H PRN PO PAIN; Start 08/08/16 at 21:00 Acetaminophen/ Hydrocodone Bitart ([place] (5/325)) 2 tab Q4H PRN PO PAIN Last administered on 08/15/16 12:08; Admin Dose 2 TAB; Start 08/08/16 at 21:00 Digoxin (Digoxin) 0.125 mg DAILY@13 PO Last administered on 08/14/16 12:27; Admin Dose 0.125 MG; Start 08/09/16 at 13:00 Docusate Sodium (Colace) 100 mg Q12H PRN PO CONSTIPATION Last administered on 08:10; Admin Dose 100 MG; Start 08/08/16 at 21:30 Famotidine (Pepcid) 20 mg Q12 PO Last administered on 08/15/16 08:10; Admin Dose 20 MG; Start 08/08/16 at 21:08 Furosemide (Lasix) 40 mg DAILY PO Last administered on 08/15/16 08:10; Admin Dose 40 MG; Start 08/09/16 at 09:00 Glipizide (Glucotrol Xl) 2.5 mg DAILY PO Last administered on 08/15/16 08:09; Admin Dose 2.5 MG; Start 08/09/16 at 09:00 Acetaminophen (Tylenol Tab) 650 mg Q6H PRN PO PAIN AND OR ELEVATED TEMP; Start 08/08/16 at 21:30 Bisacodyl (Dulcolax) 5 mg DAILY PRN PO CONSTIPATION; Start 08/08/16 at 21:30 Carisoprodol (Soma) 350 mg TID PO Last administered on 08/15/16 08:08; Admin Dose 350 MG; Start 08/08/16 at 21:10 Clonidine (Catapres) 0.4 mg QAM PO Last administered on 08/15/16 10:35; Admin Dose 0.4 MG; Start 08/09/16 at 09:00 Cyanocobalamin (Vitamin B12) 500 mcg DAILY PO Last administered on 08/15/16 08 :10; Admin Dose 500 MCG; Start 08/09/16 at 09:00 Senna (Senokot) 1 tab HS PO Last administered on 08/13/16 20:23; Admin Dose 1 TAB; Start 08/09/16 at 21:00 Bisacodyl (Dulcolax Supp) 10 mg DAILY PRN [place] CONSTIPATION; Start 08/09/16 at 06: 00 Lactulose (Enulose) 20 gm DAILY PRN PO CONSTIPATION; Start 08/09/16 at 06:00 Amlodipine Besylate (Norvasc) 10 mg DAILY PO Last administered on 08/15/16 10: 35; Admin Dose 10 MG; Start 08/10/16 at 09:00 Doxazosin Mesylate (Cardura) 1 mg HS PO Last administered on 08/14/16 20:40; Admin Dose 1 MG; Start 08/10/16 at 21:00 MONA ESPINOZA MD Aug 15, 2016 12:48
[2016-08-15] MEDS: DIGOXIN 0.125 MG TAB PO SCH (13:37)
[2016-08-15] MEDS: RIVAROXABAN 20 MG TABLET PO SCH (17:28)
[2016-08-15] MEDS: DOXAZOSIN 1 MG TAB PO SCH (20:18)
[2016-08-15] MEDS: SENNA TAB PO SCH (20:19)
[2016-08-15 21:14] VITALS: BP 126/76; RESP 18
[2016-08-16] MEDS: LEVOTHYROXINE 150 MCG TAB PO SCH (05:54)
[2016-08-16] MEDS: HYDROCODONE/APAP (5/325) TAB PO PRN (05:56)
[2016-08-16] MEDS: ACCU-CHEK XX SCH ×2 (07:05→11:30)
[2016-08-16 08:00] VITALS: BP 183/79; RESP 18
[2016-08-16] MEDS: FAMOTIDINE 20 MG TAB PO SCH (08:12)
[2016-08-16] MEDS: PREGABALIN 75 MG CAP PO SCH (08:12)
[2016-08-16] MEDS: metFORMIN 500 MG TAB PO SCH (08:12)
[2016-08-16] MEDS: POTASSIUM CHLORIDE (SR) 20 MEQ TAB PO SCH (08:12)
[2016-08-16] MEDS: FUROSEMIDE 40 MG TAB PO SCH (08:13)
[2016-08-16] MEDS: CARISOPRODOL 350 MG TAB PO SCH (08:13)
[2016-08-16] MEDS: glipiZIDE (XL) 2.5 MG TAB PO SCH (08:13)
[2016-08-16] MEDS: AMLODIPINE 10 MG TAB PO SCH (08:14)
[2016-08-16] MEDS: CYANOCOBALAMIN 500 MCG TAB PO SCH (08:14)
[2016-08-16 10:45] VITALS: BP 148/80; PULSE 90
== END 2016-08-16 11:30 | disposition home health service (06) | DRG 561 ==
LOC: VRC 18:48
PROVIDERS: ADMIT Physical Medicine & Rehabilitation; ATTEND Internal Medicine
PROC: F07Z5ZZ Bed Mobility Treatment (ICD-10-PCS; principal; 2016-08-08)
PROC: F08Z2ZZ Grooming/Personal Hygiene Treatment (ICD-10-PCS; 2016-08-08)
DX: S62.306D Unspecified fracture of fifth metacarpal bone, right hand, subsequent encounter for fracture with routine healing (principal); I48.0 Paroxysmal atrial fibrillation; E11.9 Type 2 diabetes mellitus without complications; I10 Essential (primary) hypertension; S30.1XXD Contusion of abdominal wall, subsequent encounter; S20.219D Contusion of unspecified front wall of thorax, subsequent encounter; E03.9 Hypothyroidism, unspecified; E78.5 Hyperlipidemia, unspecified; F32.9 Major depressive disorder, single episode, unspecified; R52 Pain, unspecified; I71.4 Abdominal aortic aneurysm, without rupture
CPT/HCPCS: 80053; 81001; 81003; 82962; 84439; 84443; 85025; 87081; 87086; 97110; 97112; 97116; 97150; 97163; 97166; 97530; 97535